=== PATIENT | female | born 1970 | race American Indian/Alaskan Native ===

== ENCOUNTER 2018-03-03 12:57 | Emergency (ER) | payer OTHER ==
[2018-03-03 13:10] VITALS: BMI 45.3
[2018-03-03 13:16] VITALS: RESP 18; TEMP 98.4; O2SAT 98
--- NOTE | 2018-03-03 13:41 | ED PDOC ---
Arrival/HPI - General Chief Complaint: Psychiatric Evaluation Time Seen by Provider: 03/03/18 12:57 Historian: Patient - History of Present Illness Narrative History of Present Illness (Text): 03/03/18 13:40 A 47 year old female, whose past medical history includes diabetes type 2 and migraine, who is accompanied by her , was sent by PMD to the emergency department for suicidal ideation and depression. Per PMD, patient has been having suicidal thoughts, stating she has plans of cutting herself. Patient mentions experiencing depression for the past 5 months. Patient denies any headache, or any other complaints at this time. Denies any history of hypertension. PMD: Dr. Cadena Past Medical History - Provider Review Nursing Documentation Reviewed: Yes - Cardiac Hx Cardiac Disorders: No - Pulmonary Hx Respiratory Disorders: No - Neurological Hx Neurological Disorder: Yes Hx Migraine: Yes - HEENT Hx HEENT Disorder: No - Renal Hx Renal Disorder: No - Endocrine/Metabolic Hx Endocrine Disorders: Yes Hx Diabetes Mellitus Type 2: Yes - Hematological/Oncological Hx Blood Disorders: No - Integumentary Hx Dermatological Disorder: No - Musculoskeletal/Rheumatological Hx Musculoskeletal Disorders: No - Gastrointestinal Hx Gastrointestinal Disorders: No - Genitourinary/Gynecological Hx Genitourinary Disorders: No - Psychiatric Hx Psychophysiologic Disorder: No Hx Substance Use: No - Surgical History Hx Appendectomy: Yes Hx Cholecystectomy: Yes - Anesthesia Hx Anesthesia: Yes Hx Anesthesia Reactions: No Hx Malignant Hyperthermia: No Family/Social History - Physician Review Nursing Documentation Reviewed: Yes Family/Social History: No Known Family HX Smoking Status: Former Smoker Hx Alcohol Use: No Hx Substance Use: No Allergies/Home Meds Allergies/Adverse Reactions: Allergies pizza Allergy (Uncoded 03/03/18 13:09) ANGIOEDEMA Home Medications: Home Meds Medication Instructions Recorded Confirmed Glimepiride [amaRYL] 4 mg PO BID 03/03/18 03/03/18 MetFORMIN [glucOPHAGE] 1,000 mg PO BID 03/03/18 03/03/18 Review of Systems - Physician Review All systems were reviewed & negative as marked: Yes - Review of Systems Neurological: absent: Headache Psychiatric: Depression, Suicidal Ideation Physical Exam - Physical Exam Narrative Physical Exam (Text): Gen: VS reviewed, alert, well developed, well nourished, nontoxic, mild distress. ENT: normal pharynx. Eye: EOMI, PERRL. Neck: no JVD, supple, no adenopathy. CV: regular rate, regular rhythm, no rubs, no murmur, no gallops, S1, S2, pulses equal and strong. Pulm: no distress, clear to auscultation, no wheeze, no rhonchi, breath sounds equal, no rales. Abd: soft, nontender, no guarding, no rebound, no rigidity, normal bowel sounds. Ext: no edema. Skin: good color, no rash, no cyanosis. Psych: responds appropriately to questions, normal affect. Neuro: oriented x 3, CN2-12 intact grossly, motor intact, sensation intact. Vital Signs Reviewed: Yes Vital Signs Temp Pulse Resp BP Pulse Ox 03/03/18 13:10 98.4 F 96 H 18 175/102 H 98 Temperature: Afebrile Blood Pressure: Normal Pulse: Regular Respiratory Rate: Normal Appearance: Positive for: Well-Appearing, Non-Toxic, Comfortable Pain Distress: None Mental Status: Positive for: Alert and Oriented X 3 Medical Decision Making ED Course and Treatment: 03/03/18 13:44 Impression: 47 year old female with suicidal ideation and depression. No acute findings on physical examination. Plan: -- EKG -- Chest X-ray -- Labs -- Urinalysis -- POC Urine Test -- Reassess and disposition Progress Notes: 03/03/18 15:04 patient seen by PES, patient has been cleared for discharge and referral for outpt tx. Patient does not appear to be an acute threat to herself or others and does not require acute inpt tx. 03/03/18 15:[address] cadena, will see pt for follow up and will see patient regarding elevated blood pressure. patient does not exhibit cardiopulm symptoms and no headache. patient is stable for dc. - Lab Interpretations Lab Results: 03/03/18 11:34 03/03/18 11:34 Lab Results 03/03/18 14:14: Urine Opiates Screen Negative, Urine Methadone Screen Negative, Ur Barbiturates Screen Positive H, Ur Phencyclidine Scrn Negative, Ur Amphetamines Screen Negative, U Benzodiazepines Scrn Negative, U Oth Cocaine Metabols Negative, U Cannabinoids Screen Negative 03/03/18 11:34: Alcohol, Quantitative < 10 03/03/18 11:34: Salicylates < 1 L, Acetaminophen < 10.0 L 03/03/18 11:34: Sodium 139, Potassium 3.9, Chloride 102, Carbon Dioxide 26, Anion Gap 15, BUN 5 L, Creatinine 0.5 L, Est GFR ( Amer) > 60, Est GFR ( Non-Af Amer) > 60, Random Glucose 245 H, Calcium 9.1, Total Bilirubin 0.3, AST 13 L, ALT 14, Alkaline Phosphatase 98, Total Protein 7.4, Albumin 4.0, Globulin 3.4, Albumin/Globulin Ratio 1.2 03/03/18 11:34: Urine Color Yellow, Urine Appearance Clear, Urine pH 6.0, Ur Specific [place] >= 1.030, Urine Protein 30 H, Urine Glucose (UA) >=1000, Urine Ketones 40 H, Urine Blood Negative, Urine Nitrate Negative, Urine Bilirubin Negative, Urine Urobilinogen 0.2, Ur Leukocyte Esterase Negative, Urine RBC 0 - 2, Urine WBC 1 - 3, Ur Epithelial Cells 3 - 4, Amorphous Sediment Few, Urine Bacteria Mod 03/03/18 11:34: WBC 7.4, RBC 4.57, Hgb 11.8 L, Hct 35.9 L, MCV 78.6 L, MCH 25.8 , MCHC 32.9, RDW 14.3, Plt Count 317, MPV 10.4, Gran % 60.5, Lymph % (Auto) 29.4 , [place] % (Auto) 8.2 H, Eos % (Auto) 1.6, Baso % (Auto) 0.3, Gran # 4.48, Lymph # (Auto) 2.2, [place] # (Auto) 0.6, Eos # (Auto) 0.1, Baso # (Auto) 0.02 - RAD Interpretation Radiology Orders: 03/03/18 13:18 CHEST ONE VIEW [RAD] Stat - EKG Interpretation EKG Interpretation (Text): 03/03/18 14:13 1336: nsr at 95 bpm, nml qrs, nml axis, no acute sttw abn Interpreted by ED Physician: Yes - Scribe Statement The provider has reviewed the documentation as recorded by the Susanaiblala Ahuja Provider Scribe Attestation: All medical record entries made by the Scribe were at my direction and personally dictated by me. I have reviewed the chart and agree that the record accurately reflects my personal performance of the history, physical exam, medical decision making, and the department course for this patient. I have also personally directed, reviewed, and agree with the discharge instructions and disposition. Disposition/Present on Arrival - Present on Arrival Any Indicators Present on Arrival: No History of DVT/PE: No History of Uncontrolled Diabetes: No Urinary Catheter: No History of Decub. Ulcer: No History Surgical Site Infection Following: None - Disposition Have Diagnosis and Disposition been Completed?: Yes Diagnosis: Depression, Elevated blood pressure reading Disposition: HOME/ ROUTINE Disposition Time: 15:07 Patient Plan: Discharge Condition: STABLE Discharge Instructions (ExitCare): Depression, Hypertension (ED) Print Language: LATVIAN Additional Instructions: Follow up with Dr. Cadena as soon as possible to recheck your elevated blood pressure. ANDRE ANDERS, thank you for letting us take care of you today. Your provider was Dr. Stephane Vang and you were treated for depression. The emergency medical care you received today was directed at your acute symptoms. If you were prescribed any medication, please fill it and take as directed. It may take several days for your symptoms to resolve. Return to the Emergency Department if your symptoms worsen, do not improve, or if you have any other problems. Please contact your doctor or call one of the physicians/clinics you have been referred to that are listed on the Patient Visit Information form that is included in your discharge packet. Bring any paperwork you were given at discharge with you along with any medications you are taking to your follow up visit. Our treatment cannot replace ongoing medical care by a primary care provider outside of the emergency department. Thank you for allowing the [facility] team to be part of your care today. If you had an X-Ray or CT scan: A Radiologist will review the ED reading if any change in treatment is needed we will contact you. If you had a blood, urine, or wound culture: It will take several days for the results, if any change in treatment is needed we will contact you. If you had an STI test: It will take 48 hours for the results. Please call after 1 week if you have not heard back. Forms: [employer] (Hungarian), WORK NOTE
[2018-03-03 14:16] LABS: BASO # 0.02 K/mm3 (0.0-2.0); BASO % 0.3 % (0.0-3.0); EOS # 0.1 (0.0-0.7); EOS % 1.6 % (1.5-5.0); GRAN # 4.48 (1.4-6.5); GRAN % 60.5 % (50.0-68.0); HEMOGLOBIN 11.8 g/dL (12.0-16.0); LYMPH # 2.2 (1.2-3.4); LYMPH % 29.4 % (22.0-35.0); MEAN CELL VOLUME 78.6 fl (80.0-105.0); MEAN CORPUSCULAR HEMOGLOBIN 25.8 pg (25.0-35.0); MEAN CORPUSCULAR HGB CONC 32.9 g/dl (31.0-37.0); MEAN PLATELET VOLUME 10.4 fl (7.0-11.0); MONO # 0.6 (0.1-0.6); MONO % 8.2 % (1.0-6.0); RBC 4.57 10^6/uL (3.5-6.1); RED CELL DISTRIBUTION WIDTH 14.3 % (11.5-14.5); URINE BILIRUBIN NEGATIVE (NEGATIVE); URINE BLOOD NEGATIVE (NEGATIVE); URINE GLUCOSE (UA) >=1000 mg/dL (NEGATIVE); URINE LEUKOCYTE ESTERASE NEGATIVE Leu/uL (NEGATIVE); URINE PROTEIN 30 mg/dL (<30 mg/dL); URINE UROBILINOGEN 0.2 E.U./dL (<1 E.U./dL); WHITE BLOOD COUNT 7.4 10^3/ul (4.5-11.0)
[2018-03-03 14:17] LABS: URINE APPEARANCE CLEAR (CLEAR); URINE COLOR YELLOW (YELLOW)
[2018-03-03 14:31] LABS: ALB/GLOB RATIO 1.2 (1.1-1.8); ALT/SGPT 14 U/L (7-56); AST/SGOT 13 U/L (14-36); BLOOD UREA NITROGEN 5 mg/dL (7-21); CALCIUM 9.1 mg/dL (8.4-10.5); GFR NON-AFRICAN AMERICAN > 60
[2018-03-03 14:33] LABS: ACETAMINOPHEN < 10.0 ug/ml (10.0-20.0); SALICYLATE < 1 mg/dL (2.0-20.0)
[2018-03-03 14:41] LABS: URINE RBC 0 - 2 /hpf (0-2)
[2018-03-03 14:42] LABS: BARBITURATES, UR POSITIVE (NEGATIVE); BENZODIAZEPINES, UR NEGATIVE (NEGATIVE); OPIATES, UR NEGATIVE (NEGATIVE); PHENCYCLIDINE, UR NEGATIVE (NEGATIVE)
[2018-03-03 14:43] LABS: URINE BACTERIA MOD (NEG)
[2018-03-03 14:44] LABS: URINE AMORPHOUS SEDIMENT FEW
[2018-03-03 15:48] VITALS: BP 124/78; PULSE 76
--- NOTE | 2018-03-03 18:56 | CARD ---
APPROVED REPORT Date of service: 03/03/2018 EKG Measurement Heart [id number] <Conclusion> Normal sinus rhythm Normal ECG
== END 2018-03-03 15:49 | disposition home or self-care (01) ==
LOC: ED 12:57
DX: F32.9 Major depressive disorder, single episode, unspecified (principal); R03.0 Elevated blood-pressure reading, without diagnosis of hypertension; E11.9 Type 2 diabetes mellitus without complications; Z87.891 Personal history of nicotine dependence

== ENCOUNTER 2018-07-08 12:45 | Emergency (ER) | payer OTHER ==
[2018-07-08 12:46] VITALS: BMI 45.3
[2018-07-08 13:02] VITALS: BP 139/97; PULSE 89; RESP 18; TEMP 98.3; O2SAT 98
--- NOTE | 2018-07-08 13:47 | ED PDOC ---
Arrival/HPI - General Historian: Patient - History of Present Illness Narrative History of Present Illness (Text): 07/08/18 13:49 48 pmhx of DM2 and migraines presents to ED s/p fall on stairs. She fell backwards slamming her butt and back on the steps. She has been stiff and in pain since the fall. She took 3 aleve at home, little relief. Pain is worsened when pressure is put on the Left hip. Pt states shes been getting Time/Duration: 24 hours <Leonard Perez - Last Filed: 07/08/18 14:15> <Stephane Vang - Last Filed: 07/08/18 19:13> - General Chief Complaint: Lower Extremity Problem/Injury Time Seen by Provider: 07/08/18 13:00 Past Medical History - Cardiac Hx Cardiac Disorders: No - Pulmonary Hx Respiratory Disorders: No - Neurological Hx Neurological Disorder: Yes Hx Migraine: Yes - HEENT Hx HEENT Disorder: No - Renal Hx Renal Disorder: No - Endocrine/Metabolic Hx Endocrine Disorders: Yes Hx Diabetes Mellitus Type 2: Yes - Hematological/Oncological Hx Blood Disorders: No - Integumentary Hx Dermatological Disorder: No - Musculoskeletal/Rheumatological Hx Musculoskeletal Disorders: No - Gastrointestinal Hx Gastrointestinal Disorders: No - Genitourinary/Gynecological Hx Genitourinary Disorders: No - Psychiatric Hx Psychophysiologic Disorder: No Hx Substance Use: No - Surgical History Hx Appendectomy: Yes Hx Cholecystectomy: Yes - Anesthesia Hx Anesthesia: Yes Hx Anesthesia Reactions: No Hx Malignant Hyperthermia: No <Leonard Perez - Last Filed: 07/08/18 14:15> Family/Social History Smoking Status: Former Smoker Hx Alcohol Use: No Hx Substance Use: No <Leonard Perez - Last Filed: 07/08/18 14:15> Family/Social History: No Known Family HX <Stephane Vang - Last Filed: 07/08/18 19:13> Allergies/Home Meds <Leonard Perez - Last Filed: 07/08/18 14:15> <Stephane Vang - Last Filed: 07/08/18 19:13> Allergies/Adverse Reactions: Allergies pizza Allergy (Uncoded 03/03/18 13:09) ANGIOEDEMA Home Medications: Home Meds Medication Instructions Recorded Confirmed Glimepiride [amaRYL] 4 mg PO BID 03/03/18 03/03/18 MetFORMIN [glucOPHAGE] 1,000 mg PO BID 03/03/18 03/03/18 Physical Exam Vital Signs Temp Pulse Resp BP Pulse Ox 07/08/18 12:46 98.3 F 89 18 139/97 H 98 <Leonard Perez - Last Filed: 07/08/18 14:15> Vital Signs Temp Pulse Resp BP Pulse Ox 07/08/18 12:46 98.3 F 89 18 139/97 H 98 <Stephane Vang - Last Filed: 07/08/18 19:13> Medical Decision Making - RAD Interpretation Radiology Orders: 07/08/18 13:39 LS SPINE AP/LAT [RAD] Stat SACRUM &/or COCCYX (MIN 2VW) [RAD] Stat - Medication Orders Current Medication Orders: Discontinued Medications Cyclobenzaprine HCl (Flexeril) 10 mg PO STAT STA Stop: 07/08/18 13:40 <Leonard Perez - Last Filed: 07/08/18 14:15> ED Course and Treatment: A 48 year old female presents to the emergency department for further evaluation s/p fall. In agreement with resident note, which includes further HPI details. Patient was seen and evaluated with resident, came up with plan and treatment together. 07/08/18 16:50 patient seen and examined by myself. patient seen for low back pain radiating in to the left buttock area, no tenderness of the left lateral hip. patient also reports a approx 1 month hx of left leg tingling. patient did not exhibit new neuro deficits during this evaluation. will refer back to pcp for further eval and management including mri lumbar spine. 07/08/18 16:54 - RAD Interpretation Radiology Orders: 07/08/18 13:39 LS SPINE AP/LAT [RAD] Stat SACRUM &/or COCCYX (MIN 2VW) [RAD] Stat - Medication Orders Current Medication Orders: Discontinued Medications Cyclobenzaprine HCl (Flexeril) 10 mg PO STAT STA Stop: 07/08/18 13:40 <Stephane Vang - Last Filed: 07/08/18 19:13> - Scribe Statement The provider has reviewed the documentation as recorded by the Rohith Peterson Provider Scribe Attestation: All medical record entries made by the Scribe were at my direction and personally dictated by me. I have reviewed the chart and agree that the record accurately reflects my personal performance of the history, physical exam, medical decision making, and the department course for this patient. I have also personally directed, reviewed, and agree with the discharge instructions and disposition. <Stephane Vang - Last Filed: 07/08/18 19:13> Disposition/Present on Arrival - Present on Arrival History of DVT/PE: No History of Uncontrolled Diabetes: No Urinary Catheter: No History of Decub. Ulcer: No History Surgical Site Infection Following: None <Leonard Perez - Last Filed: 07/08/18 14:15> - Present on Arrival Any Indicators Present on Arrival: No - Disposition Have Diagnosis and Disposition been Completed?: Yes Disposition Time: 16:51 Patient Plan: Discharge <Stephane Vang - Last Filed: 07/08/18 19:13> - Disposition Diagnosis: Radiculopathy of lumbosacral region, Contusion, buttock Disposition: HOME/ ROUTINE Condition: STABLE Discharge Instructions (ExitCare): Radiculopathy (DC), Coccyx Injury (DC) Additional Instructions: return for any new or worsening symptoms. follow up with your primary care doctor to ensure your symptoms improve. you may likely need a MRI of your low back for the shooting pains. Prescriptions: Cyclobenzaprine [Flexeril] 5 mg PO TID #15 tab RX: Ibuprofen [Motrin Tab] 600 mg PO QID #42 tab Forms: [facility] (Namibian), WORK NOTE
--- NOTE | 2018-07-08 16:18 | RAD ---
Date of service: 07/08/2018 PROCEDURE: Radiographs of the Lumbar Spine. HISTORY: fall on stairs, pain on L3/4 left transv process COMPARISON: No prior. FINDINGS: BONES: Normal alignment. No listhesis. No fracture. DISC SPACES: Unremarkable. OTHER FINDINGS: None. IMPRESSION: Unremarkable radiographs of the lumbar spine.
--- NOTE | 2018-07-08 16:18 | RAD ---
Date of service: 07/08/2018 PROCEDURE: Radiographs of the Sacrum and Coccyx HISTORY: fall on butt COMPARISON: None available. TECHNIQUE: Frontal and lateral views of the sacrum and coccyx FINDINGS: BONES: Sacrum and coccyx unremarkable. No fracture or focal lesion. SACROILIAC JOINTS: Unremarkable. OTHER FINDINGS: None. IMPRESSION: Unremarkable radiographs of the sacrum and coccyx.
== END 2018-07-08 17:17 | disposition home or self-care (01) ==
LOC: ED 12:45
DX: S30.0XXA Contusion of lower back and pelvis, initial encounter (principal); W10.9XXA Fall (on) (from) unspecified stairs and steps, initial encounter; M54.17 Radiculopathy, lumbosacral region; E11.9 Type 2 diabetes mellitus without complications; Z87.891 Personal history of nicotine dependence